=== PATIENT | female | born 1960 | race American Indian/Alaskan Native ===

== ENCOUNTER 2016-09-17 11:03 | Outpatient (CLI) | payer BC ==
--- NOTE | 2016-09-17 11:42 | Mammography Report ---
BILATERAL MAMMOGRAM with CAD: HISTORY:Cancer screening. FINDINGS: The breasts are almost entirely fat (<25% glandular). No mass, distortion, suspicious calcification, or skin change is seen. A circumscribed nodular opacity in the upper-outer quadrant of the left breast with a fatty hilus probably represents a small intramammary lymph node. IMPRESSION: Negative mammogram. There is no mammographic evidence of malignancy. RECOMMENDATION: Follow-up per ACS guidelines. BI-RADS CATEGORY: 1 = Negative ACR BI-RADS MAMMOGRAPHIC CODES: 0 = Needs additional imaging evaluation; 1 = Negative; 2 = Benign; 3 = Probably benign; 4 = Suspicious; 5 = Malignant; 6 = Known biopsy-proven malignancy COMMENT: 1. Dense breast tissue, i.e., adenosis, fibrocystic changes, etc., may obscure an underlying neoplasm. 2. Approximately 10% of cancers are not detected with mammography. 3. A negative mammography report should not delay biopsy if a clinically suspicious mass is present. COMMENT: Patient follow-up letters are generated in [facility].
== END 2016-09-17 11:04 | disposition home or self-care (01) ==
LOC: MAMMO 11:03
PROVIDERS: ATTEND Family Medicine Adult Medicine
DX: Z12.31 Encounter for screening mammogram for malignant neoplasm of breast (principal)
CPT/HCPCS: 77067; G0202

== ENCOUNTER 2017-07-31 13:25 | Emergency (ER) | payer BC, OTHER ==
[2017-07-31 13:57] VITALS: BP 206/120
[2017-07-31] MEDS ORDERED: ULTRAM PO ONE (15:14)
--- NOTE | 2017-07-31 15:17 | Emergency Department Report ---
ED General Adult HPI - General Chief complaint: Extremity Injury, Lower Stated complaint: LEFT LEG,FOOT&ANKLE SWOLLEN Time Seen by Provider: 07/31/17 15:04 Source: patient Mode of arrival: Ambulatory Limitations: No Limitations - History of Present Illness Initial comments: Mrs. Sol is a pleasant 57-year-old female history uterine fibroids and severe obesity. She woke up this morning with moderately severe pain in the left leg from the calf to the foot. She has left ankle swelling. Denies trauma. No history of arthritis. No previous history of DVT. She has been taking hormone therapy Norethindrone for the past 2 months for severe bleeding related to uterine fibroids. She denies chest pain. Denies Shortness breath. She denies any other associated symptoms. 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 Several weeks ago, she flew to [facility] by plane. The flight lasted one hour and 40 minutes. - Related Data Previous Rx's Medication Instructions Recorded Last Taken Type Naproxen 500 mg PO BID 10 Days #20 tablet 07/31/17 Unknown Rx Allergies Allergy/AdvReac Type Severity Reaction Status Date / Time Penicillins Allergy Itching Unverified 09/17/16 11:04 ED Review of Systems ROS: Stated complaint: LEFT LEG,FOOT&ANKLE SWOLLEN Other details as noted in HPI Comment: All other systems reviewed and negative Constitutional: denies: fever, malaise Respiratory: denies: cough Cardiovascular: denies: chest pain, palpitations ED Past Medical Hx - Past Medical History Additional medical history: FIBROIDS - Surgical History Past Surgical History?: Yes Additional Surgical History: TUBAL LIGATION - Social History Smoking Status: Never Smoker Substance Use Type: None - Medications Home Medications: Home Medications Medication Instructions Recorded Confirmed Last Taken Type Naproxen 500 mg PO BID 10 Days #20 tablet 07/31/17 Unknown Rx ED Physical Exam - General Limitations: No Limitations General appearance: alert, in no apparent distress - Head Head exam: Present: atraumatic, normocephalic - Eye Eye exam: Present: normal appearance - ENT ENT exam: Present: mucous membranes moist - Neck Neck exam: Present: normal inspection. Absent: tenderness - Respiratory Respiratory exam: Present: normal lung sounds bilaterally. Absent: respiratory distress, wheezes, rales, rhonchi - Cardiovascular Cardiovascular Exam: Present: regular rate, normal rhythm, normal heart sounds. Absent: systolic murmur, diastolic murmur, rubs, gallop - GI/Abdominal GI/Abdominal exam: Present: soft, normal bowel sounds. Absent: distended, tenderness - Extremities Exam Extremities exam: Present: other (left lower leg leg is larger than the right lower leg from the calf to the foot with ankle edema bilateral pedal pulses intact 2+ DP) - Back Exam Back exam: Present: normal inspection - Neurological Exam Neurological exam: Present: alert, oriented X3 - Psychiatric Psychiatric exam: Present: normal affect, normal mood - Skin Skin exam: Present: warm, dry, intact, normal color, other (no signs of cellulitis, several varicose veins in both extremities more prominent on the left). Absent: rash ED Course Vital Signs 07/31/17 13:53 Temperature 98.6 F Pulse Rate 71 Blood Pressure 206/120 O2 Sat by Pulse 100 Oximetry ED Medical Decision Making - Radiology Data Radiology results: report reviewed I spoke her radiologist directly. He informed me that there is soft tissue formation in the posterior left leg likely early López cyst. No evidence of DVT I reviewed radiology report of left ankle: soft tissue swelling - Medical Decision Making Left leg pain likely due to López's cyst. I recommended repeat ultrasound at her [facility] within a week. I prescribed NSAIDs. Critical care attestation.: If time is entered above; I have spent that time in minutes in the direct care of this critically ill patient, excluding procedure time. ED Disposition Clinical Impression: López's cyst of knee Disposition: DC-01 TO HOME OR SELFCARE Is pt being admited?: No Does the pt Need Aspirin: No Condition: Stable Instructions: López's Cyst (ED) Additional Instructions: You need a repeat ultrasound in one week. Prescriptions: Naproxen 500 mg PO BID 10 Days #20 tablet Referrals: PRIMARY CARE, [Primary Care Provider] - 3-5 Days Time of Disposition: 16:43
--- NOTE | 2017-07-31 16:13 | XRay Report ---
FINAL REPORT PROCEDURE: Left ankle. TECHNIQUE: AP and lateral views. HISTORY: Ankle and leg swelling. COMPARISON: No prior studies are available for comparison. FINDINGS: The bones appear intact without fracture or dislocation. The joint spaces appear satisfactory. There is some soft tissue swelling in the ankle. IMPRESSION: Soft tissue swelling.
== END 2017-07-31 16:55 | disposition home or self-care (01) ==
LOC: ED 13:25
DX: M71.22 Synovial cyst of popliteal space [Baker], left knee (principal); Z98.51 Tubal ligation status; Z88.0 Allergy status to penicillin
CPT/HCPCS: 99283